=== PATIENT | female | born 1955 | race Two or more races ===

== ENCOUNTER 2016-07-11 23:51 | Inpatient (IN) | payer SELFPAY ==
[~2016-07-11] VITALS: Ht 152.4 cm; Wt 50.9 kg
[2016-07-12] MEDS ORDERED: ASPIRIN 81 MG TAB.CHEW PO ONE (00:30)
[2016-07-12] MEDS ORDERED: NITROGLYCERIN SUBLINGUAL 0.4 MG BOTTLE OF 25. SL PRN ×2 (00:30→01:45)
--- NOTE | 2016-07-12 00:40 | PHYS DOC ---
Past Medical History Past Medical History: High Cholesterol Past Surgical History: No Surgical History Alcohol Use: None Drug Use: None Adult General Chief Complaint Chief Complaint: SHORTNESS OF BREATH HPI HPI Patient is a 60 year old female who presents with chest discomfort. Patient reports this evening ~1800 she started feeling SOB as well as feeling substernal chest pressure. No clear inciting or mitigating factors. No prior similar episodes. She also reports having chills and loose stools for a few days. She has not taken anything for her symptoms prior to coming to ED. History obtained via serging machine operator phone. Review of Systems Review of Systems Constitutional: Chills Eyes: Denies change in visual acuity or eye pain HENT: Denies nasal congestion or sore throat Respiratory: Shortness of breath, mild cough Cardiovascular: Substernal chest pressure GI: Loose stools. Denies abdominal pain, nausea, vomiting, bloody stools : Denies dysuria or hematuria Musculoskeletal: Denies back pain or joint pain Integument: Denies rash or skin lesions Neurologic: Denies headache, focal weakness or sensory changes Current Medications Current Medications Current Medications Medications (Trade) Dose Ordered Sig/Tim Start Time Stop Time Status Last Admin Dose Admin Aspirin (Children'S Aspirin) 324 mg 1X ONCE 07/12/16 00:30 07/12/16 00:31 DC 07/12/16 00:37 324 MG Nitroglycerin (Nitrostat) 0.4 mg PRN Q5MIN PRN 07/12/16 00:30 07/12/16 02:00 DC 07/12/16 00:37 0.4 MG Allergies Allergies Allergies Coded Allergies Type Severity Reaction Last Updated Verified No Known Drug Allergies 07/11/16 No Physical Exam Physical Exam Constitutional: Well developed, well nourished, no acute distress, non-toxic appearance HENT: Normocephalic, atraumatic, bilateral external ears normal Eyes: EOMI, conjunctiva normal, no discharge Neck: Normal range of motion, no stridor Cardiovascular: Heart rate normal, regular rhythm, no murmur Lungs & Thorax: Bilateral breath sounds clear to auscultation Abdomen: Bowel sounds normal, soft, non-distended, no TTP Skin: Warm, dry, no erythema, no rash Extremities: No obvious deformity, no edema Neurologic: Alert and oriented X 3, no gross deficits noted Current Patient Data Vital Signs Vital Signs Date Time Temp Pulse Resp B/P Pulse Ox O2 Delivery O2 Flow Rate FiO2 07/12/16 01:20 58 18 143/67 99 Room Air 07/11/16 23:55 97.7 97.7 Lab Values Laboratory Tests Test 07/12/16 00:30 White Blood Count 3.7x10^3/uL (4.0-11.0) L Red Blood Count 4.72x10^6/uL (3.50-5.40) Hemoglobin 13.6g/dL (12.0-15.5) Hematocrit 41.5% (36.0-47.0) Mean Corpuscular Volume 88fL (79-100) Mean Corpuscular Hemoglobin 29pg (25-35) Mean Corpuscular Hemoglobin Concent 33g/dL (31-37) Red Cell Distribution Width 13.3% (11.5-14.5) Platelet Count 153x10^3/uL (140-400) Neutrophils (%) (Auto) 33% (31-73) Lymphocytes (%) (Auto) 58% (24-48) H Monocytes (%) (Auto) 7% (0-9) Eosinophils (%) (Auto) 2% (0-3) Basophils (%) (Auto) 1% (0-3) Neutrophils # (Auto) 1.2x10^3uL (1.8-7.7) L Lymphocytes # (Auto) 2.1x10^3/uL (1.0-4.8) Monocytes # (Auto) 0.3x10^3/uL (0.0-1.1) Eosinophils # (Auto) 0.1x10^3/uL (0.0-0.7) Basophils # (Auto) 0.0x10^3/uL (0.0-0.2) Sodium Level 144mmol/L (136-145) Potassium Level 3.4mmol/L (3.5-5.1) L Chloride Level 106mmol/L (98-107) Carbon Dioxide Level 26mmol/L (21-32) Anion Gap 12 (6-14) Blood Urea Nitrogen 15mg/dL (7-20) Creatinine 0.7mg/dL (0.6-1.0) Estimated GFR (Cockcroft-Gault) 85.1 Glucose Level 102mg/dL (70-99) H Calcium Level 9.2mg/dL (8.5-10.1) Troponin I Quantitative < 0.017ng/mL (0.000-0.055) Laboratory Tests 07/12/16 00:30 Laboratory Tests 07/12/16 00:30 EKG EKG EKG (my read): sinus rhythm, rate 65, normal axis, intervals wnl, nonspecific ST changes, limited by artifact Radiology/Procedures Radiology/Procedures CXR (my read): No acute abnormality Course & Med Decision Making Course & Med Decision Making Pertinent Labs and Imaging studies reviewed. (See chart for details) Patient is 60 year old female who presents with chest pressure and SOB. Concern for possibility of ACS. Will check EKG, CXR, labs to evaluate. ASA and SL nitroglycerin ordered. EKG and CXR results as above. Labs largely unremarkable; troponin wnl. I still believe patient warrants admission for further evaluation of her chest discomfort due to concern for possible CAD. Discussed results with patient, who reports symptoms significantly improved after nitro. Discussed with Dr. Houston, will admit under his care for further evaluation and treatment. Dragon Disclaimer Dragon Disclaimer This electronic medical record was generated, in whole or in part, using a voice recognition dictation system. Departure Departure Impression: Primary Impression: Chest pressure Additional Impression: SOB (shortness of breath) Disposition: ADMITTED INPATIENT Admitting Physician: Elias Houston Condition: STABLE Referrals: NO PCP (PCP) Problem Qualifiers SEBLE BRANCH MD Jul 12, 2016 00:40
[2016-07-12 00:44] LABS: BASO % 1 % (0-3); EOS % 2 % (0-3); HEMATOCRIT 41.5 % (36.0-47.0); HEMOGLOBIN 13.6 g/dL (12.0-15.5); LYMPH # 2.1 x10^3/uL (1.0-4.8); LYMPH % 58 % (24-48); MEAN CORPUSCULAR HEMOGLOBIN 29 pg (25-35); MEAN CORPUSCULAR HGB CONC 33 g/dL (31-37); MEAN CORPUSCULAR VOLUME 88 fL (79-100); MONO % 7 % (0-9); NEUT % 33 % (31-73); PLATELET COUNT 153 x10^3/uL (140-400); RED BLOOD COUNT 4.72 x10^6/uL (3.50-5.40); RED CELL DISTRIBUTION WIDTH 13.3 % (11.5-14.5); WHITE BLOOD COUNT 3.7 x10^3/uL (4.0-11.0)
[2016-07-12 00:54] LABS: CALCIUM 9.2 mg/dL (8.5-10.1); CREATININE 0.7 mg/dL (0.6-1.0); GFR 85.1; POTASSIUM 3.4 mmol/L (3.5-5.1)
[2016-07-12] MEDS ORDERED: MORPHINE SULFATE 2 MG/ML DISP.SYRIN. IV PRN (01:45)
[2016-07-12] MEDS ORDERED: ACETAMINOPHEN 325 MG TABLET. PO PRN (01:45)
[2016-07-12] MEDS ORDERED: ONDANSETRON PF 4 MG/2 ML VIAL. IV PRN ×2 (01:45→09:35)
[2016-07-12 02:36] VITALS: BP 173/84
[2016-07-12] MEDS ORDERED: L.AC1CAP6 PO (02:55)
[2016-07-12] MEDS ORDERED: LORA10TA3 PO (02:55)
--- NOTE | 2016-07-12 06:53 | EKG ---
[facility] [address] [place] [address] Test Date: 2016-07-12 Test Time: 00:12:26 Pat Name: NATE SIMS Department: Room: 258 1 Gender: F [employer] Agent: : 1955 Requested By: SEBLE BRANCH Order Number: [id number] Reading MD: Toby Costa Measurements Intervals [place] Rate: 65 P: 90 DE: 134 QRS: 35 QRSD: 76 T: 38 QT: 422 QTc: 444 Interpretive Statements SINUS RHYTHM LOW LIMB LEAD VOLTAGE NO SPECIFIC ECG ABNORMALITIES Electronically Signed On 07-23-2016 16:13:37 CDT by Toby Costa
--- NOTE | 2016-07-12 07:31 | RAD ---
Indication chest pressure. Shortness of breath. PA and lateral views of the chest were obtained. No prior imaging is available. The heart, pulmonary vessels and mediastinum appear normal. The lungs are clear. Bony structures appear grossly intact. IMPRESSION: No acute or significant finding apparent in the chest
[2016-07-12 07:42] VITALS: BP 143/74
--- NOTE | 2016-07-12 08:53 | PDOC2 ---
EFREM RODRIGUEZ TAPE STRINGER 07/12/16 0853: CARDIAC CONSULT DATE OF CONSULT Date of Consult DATE: 07/12/16 TIME: 08:45 REASON FOR CONSULT Reason for Consult: Chest pressure, SOB REFERRING PHYSICIAN Referring Physician: Jose De Jesus SOURCE Source: Chart review, Patient HISTORY OF PRESENT ILLNESS HISTORY OF PRESENT ILLNESS This is a pleasant 60 yo female admitted for complains of chest pressure. Pt speaks minimal Maori, family at the bedside and was able to interpret some details of her symptomatology. Reports that about a week ago she was eating in which afterwards she felt midchest pressure. She did not take any medications for this but this lasted for a while. Medication boucher she just takes claritin and probiotics. Reports occasional sensation of food getting stucked midway to her swallowing but no distress. Also occasional dizziness which almost occur when she has this globus episode. Yesterday 1 hour after dinner she felt the same midchest pressure which was nonradiating but felt SOA at that time and lasted about 2 hours which recurred again overnight. There was no diaphoresis, palpitations. Denies any CAD, VTE, recent falls, injury, nor PUD, GERD. Denies any CURTIS and no changes with her activity tolerance. PAST MEDICAL HISTORY Cardiovascular: Hyperlipidemia (unmedicated) Pulmonary: No pertinent hx CENTRAL NERVOUS SYSTEM: Other (No pertinent history) GI: Other (diarrhea) Heme/Onc: No pertinent hx Hepatobiliary: No pertinent hx Psych: No pertinent hx Musculoskeletal: Osteoarthritis Rheumatologic: No pertinent hx Infectious disease: No pertinent hx ENT: Allergic Rhinitis Renal/: No pertinent hx Endocrine: No pertinent hx Dermatology: No pertinent hx PAST SURGICAL HISTORY Past Surgical History: (x2) FAMILY HISTORY Family History: Diabetes (sister) SOCIAL HISTORY Smoke: No (quit 1 yr ago 10 ciggs 40 yrs) ALCOHOL: none Drugs: None Lives: with Family CURRENT MEDICATIONS CURRENT MEDICATIONS Current Medications Medications (Trade) Dose Ordered Sig/Tim Route PRN Reason Start Time Stop Time Status Last Admin Dose Admin Aspirin (Children'S Aspirin) 324 mg 1X ONCE PO 07/12/16 00:30 07/12/16 00:31 DC 07/12/16 00:37 Nitroglycerin (Nitrostat) 0.4 mg PRN Q5MIN PRN SL CP RATING > 1/10 07/12/16 00:30 07/12/16 02:00 DC 07/12/16 00:37 ALLERGIES ALLERGIES: Coded Allergies: No Known Drug Allergies (Unverified , 07/11/16) ROS Review of System 14 point ROS evaluated with pertinent positives noted per HPI PHYSICAL EXAM General: Alert, Oriented X3, Cooperative, No acute distress HEENT: Atraumatic, Mucous membr. moist/pink Lungs: Clear to auscultation, Normal air movement Heart: Regular rate, Normal S1, Normal S2, Other (2/6 systolic murmur to LLS border) Abdomen: Soft, No tenderness Extremities: No cyanosis, No edema Skin: No breakdown, No significant lesion Neuro: Normal speech, Sensation intact Psych/Mental Status: Mental status NL, Mood NL MUSCULOSKELETAL: Osteoarthritic changes both hands VITALS VITALS Vital Signs Date Time Temp Pulse Resp B/P Pulse Ox O2 Delivery O2 Flow Rate FiO2 07/12/16 07:42 97.7 72 18 143/74 98 Room Air 97.7 LABS Lab: Laboratory Tests Test 07/12/16 00:30 07/12/16 07:40 White Blood Count 3.7x10^3/uL (4.0-11.0) Red Blood Count 4.72x10^6/uL (3.50-5.40) Hemoglobin 13.6g/dL (12.0-15.5) Hematocrit 41.5% (36.0-47.0) Mean Corpuscular Volume 88fL (79-100) Mean Corpuscular Hemoglobin 29pg (25-35) Mean Corpuscular Hemoglobin Concent 33g/dL (31-37) Red Cell Distribution Width 13.3% (11.5-14.5) Platelet Count 153x10^3/uL (140-400) Neutrophils (%) (Auto) 33% (31-73) Lymphocytes (%) (Auto) 58% (24-48) Monocytes (%) (Auto) 7% (0-9) Eosinophils (%) (Auto) 2% (0-3) Basophils (%) (Auto) 1% (0-3) Neutrophils # (Auto) 1.2x10^3uL (1.8-7.7) Lymphocytes # (Auto) 2.1x10^3/uL (1.0-4.8) Monocytes # (Auto) 0.3x10^3/uL (0.0-1.1) Eosinophils # (Auto) 0.1x10^3/uL (0.0-0.7) Basophils # (Auto) 0.0x10^3/uL (0.0-0.2) Sodium Level 144mmol/L (136-145) Potassium Level 3.4mmol/L (3.5-5.1) Chloride Level 106mmol/L (98-107) Carbon Dioxide Level 26mmol/L (21-32) Anion Gap 12 (6-14) Blood Urea Nitrogen 15mg/dL (7-20) Creatinine 0.7mg/dL (0.6-1.0) Estimated GFR (Cockcroft-Gault) 85.1 Glucose Level 102mg/dL (70-99) Calcium Level 9.2mg/dL (8.5-10.1) Troponin I Quantitative < 0.017ng/mL (0.000-0.055) < 0.017ng/mL (0.000-0.055) ASSESSMENT/PLAN ASSESSMENT/PLAN 1. Chest pain: possible GI with globus sensation. 1. HTN: Possible hypertensive heart disease. 2. DLP: unmedicated LDL 109 but HDL 72. 3. Previous chronic tobaccoism: 20 pk yr quit 1 yr ago. 4. Subclinical hypothyroidism: TSH 6.8 Recommendations 1. With significant cardiac risk factors, MPI today to completely rule out ischemia 2. TTE 3. Repeat EKG due to significant artifacts 4. Replace K 5. CMP, Mg, lipids 6. Start on ECASA 81 mg for primary prevention. 7. Encourage low fat diet and incorporate exercise in regimen. 8. If BP remains high then recommend low dose lisinopril/HCTZ combo. 9. Start PPI, recommend GI referral Problems: BILLY DHILLON MD 07/13/16 0709: CARDIAC CONSULT ALLERGIES ALLERGIES: Coded Allergies: No Known Drug Allergies (Unverified , 07/11/16) ASSESSMENT/PLAN ASSESSMENT/PLAN Patient seen and examined 07/12/16. Agree with ADMITTANCE ATTENDANT's assessment and plan. Chest pain with atypical features and most probably GI etiology. Myocardial infarction ruled out. 2-D echo showed normal LV function without any wall motion abnormalities. Lexiscan nuclear stress test did not show any significant ischemia. No further cardiac workup is indicated at this time. Thank you for your consultation. Problems: EFREM RODRIGUEZ APRN Jul 12, 2016 08:53 BILLY DHILLON MD Jul 13, 2016 07:09
--- NOTE | 2016-07-12 09:28 | EKG ---
[facility] [address] [place] [address] Test Date: 2016-07-12 Test Time: 09:26:50 Pat Name: NATE SIMS Department: Room: 258 1 Gender: F Ferry Pilot: CHRISTIAN : 1955 Requested By: EFREM RODRIGUEZ Order Number: [id number] Reading MD: Toby Costa Measurements Intervals [place] Rate: 62 P: 64 VA: 156 QRS: 22 QRSD: 74 T: 53 QT: 432 QTc: 441 Interpretive Statements SINUS RHYTHM NORMAL ECG Electronically Signed On 07-23-2016 16:14:23 CDT by Toby Costa
[2016-07-12 09:32] LABS: ALBUMIN 3.8 g/dL (3.4-5.0); CREATININE 0.7 mg/dL (0.6-1.0); GFR 85.1; MAGNESIUM 2.4 mg/dL (1.8-2.4); POTASSIUM 3.8 mmol/L (3.5-5.1); TOTAL BILIRUBIN 0.5 mg/dL (0.2-1.0); TOTAL PROTEIN 7.5 g/dL (6.4-8.2)
[2016-07-12 09:36] LABS: CHOLESTEROL/HDL RATIO 2.9
--- NOTE | 2016-07-12 09:38 | PDOC1 ---
History and Physical Date of Admission Date of Admission DATE: 07/12/16 TIME: 09:33 Identification/Chief Complaint Chief Complaint CP at rest x 2 hrs Source Source: Caregiver History of Present Illness History of Present Illness 60 y./o Gabonese speaking lady, 10 y.o grand son acts as cut in worker, Pt only takes loratidine and Probiotic as home med, Came in last night bec of CP at home at rest associated with nausea, no other sxs relayed to me, Lasted 2 hrs, currently CP free. Trops x 2 neg, EKG I have personally reviewed, no concerning findings Pt already ate breakfast NOn smoker, non drinker NO relevant past surgical hx ROS: all 14 pt reviewed, neg Fam Hx; HTN and Dm in family PAst medical: allergies Past Medical History Cardiovascular: No pertinent hx, Hyperlipidemia Pulmonary: No pertinent hx GI: No pertinent hx Heme/Onc: No pertinent hx Hepatobiliary: No pertinent hx Psych: No pertinent hx Rheumatologic: No pertinent hx Infectious disease: No pertinent hx ENT: No pertinent hx Renal/: No pertinent hx Endocrine: No pertinent hx Dermatology: No pertinent hx Past Surgical History Past Surgical History: , No pertinent history Family History Family History: High Cholestrol, Hypertension, Other (DM) Social History Smoke: No ALCOHOL: none Drugs: None Current Problem List Problem List Problems Medical Problems: (1) Chest pressure Status: Acute (2) SOB (shortness of breath) Status: Acute Problems: Current Medications Current Medications Current Medications Aspirin (Children'S Aspirin) 324 mg 1X ONCE PO Last administered on 07/12/16 00:37; Start 07/12/16 at 00:30; Stop 07/12/16 at 00:31; Status DC Nitroglycerin (Nitrostat) 0.4 mg PRN Q5MIN PRN SL CP RATING > 1/10 Last administered on 07/12/16 00:37; Start 07/12/16 at 00:30; Stop 07/12/16 at 02:00 ; Status DC Ondansetron HCl (Zofran) 4 mg PRN Q8HRS PRN IV NAUSEA/VOMITING; Start 07/12/16 at 01:45; Stop 07/13/16 at 01:44 Morphine Sulfate 2 mg PRN Q2HR PRN IV PAIN; Start 07/12/16 at 01:45; Stop 07/13 at 01:44 Acetaminophen (Tylenol) 650 mg PRN Q4HRS PRN PO FEVER; Start 07/12/16 at 01:45 ; Stop 07/13/16 at 01:44 Nitroglycerin (Nitrostat) 0.4 mg PRN Q5MIN PRN SL CHEST PAIN; Start 07/12/16 at 01:45; Stop 07/13/16 at 01:44 Active Scripts Active Reported Loratadine 10 Mg Tablet 10 Mg PO DAILY Probiotic (L.acidoph & Paracasei,B.lactis) 1 Each Capsule 1 Each PO Allergies Allergies: Coded Allergies: No Known Drug Allergies (Unverified , 07/11/16) ROS General: No: Appetite, Chills, Fatigue, Malaise, Night Sweats, Other PSYCHOLOGICAL ROS: No: Anxiety, Behavioral Disorder, Concentration difficultie , Decreased libido, Depression, Disorientation, Hallucinations, Hostility, Irritablity, Memory difficulties, Mood Swings, Obsessive thoughts, Other, Physical abuse, Sexual abuse, Sleep disturbances, Suicidal ideation Eyes: No Blurry vision, No Decreased vision, No Double vision, No Dry eyes, No Excessive tearing, No Eye Pain, No Itchy Eyes, No Loss of vision, No Other, No Photophobia, No Scotomata, No Uses contacts, No Uses glasses HEENT: No: Epistaxis, Heacaches, Hearing change, Nasal congestion, Nasal discharge, Oral lesions, Other, Sinus pain, Sneezing, Snoring, Sore Throat, Tinnitus, Vertigo, Visual Changes, Vocal changes ALLERGY AND IMMUNOLOGY: No: Hives, Insect Bite Sensitivity, Itchy/Watery Eyes, Nasal Congestion, Other, Post Nasal Drip, Seasonal Allergies Hematological and Lymphatic: No: Bleeding Problems, Blood Clots, Blood Transfusions, Brusing, Night Sweats, Other, Pallor, Swollen Lymph Nodes ENDOCRINE: No: Breast Changes, Galactorrhea, Hair Pattern Changes, Hot Flashes , Malaise/lethargy, Mood Swings, Other, Palpitations, Polydipsia/polyuria, Skin Changes, Temperature Intolerance, Unexpected Weight Changes Breast: No New/Changing Breast Lumps, No Nipple changes, No Nipple discharge, No Other Respiratory: No: Cough, Hemoptysis, Orthopnea, Other, Pleuritic Pain, SOB with excertion, Shortness of breath, Sputum Changes, Stridor, Tachypnea, Wheezing Cardiovascular: No Chest Pain, No Edema, No Lt Headedness, No Orthopnea, No Other, No Palpitations, No Paroxysmal Noc. Dyspnea Gastrointestinal: No Abdominal Pain, No Constipation, No Diarrhea, No Hematochezia, No Melena, No Nausea, No Other, No Vomiting Genitourinary: No , No , No , No , No , No , No , No Discharge, No Dysuria, No Flank Pain, No Frequency, No Hematuria, No Incontinence, No Other, No Pain, No Retention, No Urgency Musculoskeletal: No Gait Disturbance, No Joint Pain, No Joint Stiffness, No Joint Swelling, No Muscle Pain, No Muscular Weakness, No Other, No Pain In:, No Swelling In: Neurological: No Behavorial Changes, No Bowel/Bladder ControlChng, No Confusion , No Dizziness, No Gait Disturbance, No Headaches, No Impaired Coord/balance, No Memory Loss, No Numbness/Tingling, No Other, No Seizures, No Speech Problems , No Tremors, No Visual Changes, No Weakness Skin: No Acne, No Dry Skin, No Eczema, No Hair Changes, No Lumps, No Mole Changes, No Mottling, No Nail Changes, No Other, No Pruritus, No Rash, No Skin Lesion Changes Physical Exam General: Alert, Oriented X3, Cooperative, No acute distress HEENT: Atraumatic Lungs: Clear to auscultation, Normal air movement Heart: S1S2, RRR, no thrills, no rubs, no gallops Cardiovascular: S1, S2 Breasts: Normal, Rt breast nml w/o mass, Lt breast nml w/o mass, Nipples normal Male Genitals Exam: normal genitalia, normal prostate Rectal Exam: not examined PELVIC: Nml ext genitalia Extremities: No clubbing, No cyanosis, No edema, Normal pulses, No tenderness/ swelling Skin: No rashes, No breakdown, No significant lesion Neuro: Normal gait, Normal speech, Strength at 5/5 X4 ext, Normal tone, Sensation intact, Cranial nerves 3-12 NL, Reflexes 2+ Psych/Mental Status: Mental status NL, Mood NL Vitals Vitals Vital Signs Date Time Temp Pulse Resp B/P Pulse Ox O2 Delivery O2 Flow Rate FiO2 07/12/16 08:00 Room Air 07/12/16 07:42 97.7 72 18 143/74 98 97.7 Labs Labs Laboratory Tests Test 07/12/16 00:30 07/12/16 07:40 White Blood Count 3.7x10^3/uL (4.0-11.0) Red Blood Count 4.72x10^6/uL (3.50-5.40) Hemoglobin 13.6g/dL (12.0-15.5) Hematocrit 41.5% (36.0-47.0) Mean Corpuscular Volume 88fL (79-100) Mean Corpuscular Hemoglobin 29pg (25-35) Mean Corpuscular Hemoglobin Concent 33g/dL (31-37) Red Cell Distribution Width 13.3% (11.5-14.5) Platelet Count 153x10^3/uL (140-400) Neutrophils (%) (Auto) 33% (31-73) Lymphocytes (%) (Auto) 58% (24-48) Monocytes (%) (Auto) 7% (0-9) Eosinophils (%) (Auto) 2% (0-3) Basophils (%) (Auto) 1% (0-3) Neutrophils # (Auto) 1.2x10^3uL (1.8-7.7) Lymphocytes # (Auto) 2.1x10^3/uL (1.0-4.8) Monocytes # (Auto) 0.3x10^3/uL (0.0-1.1) Eosinophils # (Auto) 0.1x10^3/uL (0.0-0.7) Basophils # (Auto) 0.0x10^3/uL (0.0-0.2) Sodium Level 144mmol/L (136-145) Potassium Level 3.4mmol/L (3.5-5.1) Chloride Level 106mmol/L (98-107) Carbon Dioxide Level 26mmol/L (21-32) Anion Gap 12 (6-14) Blood Urea Nitrogen 15mg/dL (7-20) Creatinine 0.7mg/dL (0.6-1.0) Estimated GFR (Cockcroft-Gault) 85.1 Glucose Level 102mg/dL (70-99) Calcium Level 9.2mg/dL (8.5-10.1) Troponin I Quantitative < 0.017ng/mL (0.000-0.055) < 0.017ng/mL (0.000-0.055) Laboratory Tests Test 07/12/16 00:30 07/12/16 07:40 White Blood Count 3.7x10^3/uL (4.0-11.0) Red Blood Count 4.72x10^6/uL (3.50-5.40) Hemoglobin 13.6g/dL (12.0-15.5) Hematocrit 41.5% (36.0-47.0) Mean Corpuscular Volume 88fL (79-100) Mean Corpuscular Hemoglobin 29pg (25-35) Mean Corpuscular Hemoglobin Concent 33g/dL (31-37) Red Cell Distribution Width 13.3% (11.5-14.5) Platelet Count 153x10^3/uL (140-400) Neutrophils (%) (Auto) 33% (31-73) Lymphocytes (%) (Auto) 58% (24-48) Monocytes (%) (Auto) 7% (0-9) Eosinophils (%) (Auto) 2% (0-3) Basophils (%) (Auto) 1% (0-3) Neutrophils # (Auto) 1.2x10^3uL (1.8-7.7) Lymphocytes # (Auto) 2.1x10^3/uL (1.0-4.8) Monocytes # (Auto) 0.3x10^3/uL (0.0-1.1) Eosinophils # (Auto) 0.1x10^3/uL (0.0-0.7) Basophils # (Auto) 0.0x10^3/uL (0.0-0.2) Sodium Level 144mmol/L (136-145) Potassium Level 3.4mmol/L (3.5-5.1) Chloride Level 106mmol/L (98-107) Carbon Dioxide Level 26mmol/L (21-32) Anion Gap 12 (6-14) Blood Urea Nitrogen 15mg/dL (7-20) Creatinine 0.7mg/dL (0.6-1.0) Estimated GFR (Cockcroft-Gault) 85.1 Glucose Level 102mg/dL (70-99) Calcium Level 9.2mg/dL (8.5-10.1) Troponin I Quantitative < 0.017ng/mL (0.000-0.055) < 0.017ng/mL (0.000-0.055) VTE Prophylaxis Ordered VTE Prophylaxis Devices: Yes VTE Pharmacological Prophylaxi: Yes Assessment/Plan Assessment/Plan 1. CP in an adult at rest 2. Seasonal allergies 3. Mild hypokalemia PLAn: Replace K Unfortunately pt had breakfast this AM Follow cards recs re work up Dw pt s family MORGAN JAIN MD Jul 12, 2016 09:38
[2016-07-12] MEDS ORDERED: POTASSIUM CHLORIDE 20 MEQ TABLET.ER. PO ONE ×2 (09:45→15:30)
[2016-07-12 11:00] VITALS: BP 151/85
[2016-07-12] MEDS ORDERED: REGADENOSON 0.4 MG/5 ML DISP.SYRIN. IV ONE (12:15)
--- NOTE | 2016-07-12 12:54 | CARD ---
APPROVED REPORT EXAM: Two-dimensional and M-mode echocardiogram with Doppler and color Doppler. Other Information Quality : Average Rhythm : NSR INDICATION Chest Pain 2D DIMENSIONS RVDd2.0 (2.9-3.5cm)Left Atrium(2D)3.0 (1.6-4.0cm) IVSd0.8 (0.7-1.1cm)Aortic Root(2D)2.5 (2.0-3.7cm) LVDd4.2 (3.9-5.9cm)LVOT Diameter2.3 (1.8-2.4cm) PWd0.8 (0.7-1.1cm)LVDs2.8 (2.5-4.0cm) FS (%) 33.0 %SV48.3 ml LVEF(%)61.9 (>50%) Aortic Valve AoV Peak Armando.120.8cm/sAoV VTI26.1cm AO Peak GR.5.8mmHgLVOT Peak Armando.80.6cm/s LVOT VTI 18.66cmAO Mean GR.3mmHg DREAD (VMAX)2.18ee6NCG (VTI)3.04cm2 Mitral Valve MV E Vuvucouf35.9cm/sMV DECEL [id number] MV A Sqxwggvo98.6cm/sMV E Mean Gr.1mmHg MV GFQ07mrZ/A Ratio1.1 MV A Apgyfslw103peHHH (PHT)4.02cm2 TDI E/Lateral E'8.5E/Medial E'8.5 Pulmonary Valve PV Peak Lmexfqzt52.0cm/sPV Peak Grad.2mmHg RVOT VTI18.7cm Tricuspid Valve TR P. Sxhwmfgv442ly/sRAP CVOBERQD6ryXb TR Peak Gr.40jhPnLRPU39xmIn Pulmonary Vein S1 Jrunewra75.3cm/sD2 Smzuyllb94.0cm/s LEFT VENTRICLE The left ventricle is normal size. There is normal left ventricular wall thickness. Left ventricle sy stolic function is normal. The Ejection Fraction is 60-65%. There is normal LV segmental wall motion. The left ventricular diastolic function and filling is normal for age. RIGHT VENTRICLE The right ventricle is normal size. The right ventricular systolic function is normal. ATRIA The left atrium size is normal. The right atrium size is normal. The interatrial septum is intact wit h no evidence for an atrial septal defect or patent foramen ovale as noted on 2-D or Doppler imaging. AORTIC VALVE The aortic valve is normal in structure and function. The aortic valve is trileaflet. Doppler and Col or Flow revealed no significant aortic regurgitation. There is no significant aortic valvular stenosi s. MITRAL VALVE The mitral valve is normal in structure and function. There is no mitral valve stenosis. Doppler and Color Flow revealed no mitral valve regurgitation noted. TRICUSPID VALVE The tricuspid valve is normal in structure and function. Doppler and Color Flow revealed mild tricusp id regurgitation. The PA pressure was estimated at 38 mmHg. There is no tricuspid valve stenosis. PULMONIC VALVE The pulmonic valve is not well visualized. Doppler and Color Flow revealed no pulmonic valvular regur gitation. There is no pulmonic valvular stenosis. GREAT VESSELS The aortic root is normal in size. Normal pulmonary venous flow (Doppler). The IVC is normal in size and collapses >50% with inspiration. PERICARDIAL EFFUSION There is no evidence of significant pericardial effusion. Critical Notification Critical Value: No <Conclusion> Left ventricle systolic function is normal. The Ejection Fraction is 60-65%. There is normal LV segmental wall motion. Mild tricuspid regurgitation. The PA pressure was estimated at 38 mmHg. There is no evidence of significant pericardial effusion.
[2016-07-12 15:14] VITALS: BP 137/67
--- NOTE | 2016-07-12 15:16 | RAD ---
APPROVED REPORT Test Type: Pharmacological Stress Nurse/Tech: Janeth Yee R.N. Test Indications: SOA, Chest pressure Cardiac History: None reported Medications: SEE EMR Medical History: SEE EMR Resting ECG: SR Resting Heart Rate: 67 bpm Resting Blood Pressure: 148/82mmHg Pretest Chest Pain: None Nurse/Tech Notes S1S2, lungs CTA, denied chest pain and SOA. Consent: The procedure was explained to the patient in lay terms. Informed consent was witnessed. Krishan eout was entered into [employer]. History and Stress Test performed by Janeth Yee R.N. Pharm. Details Pharmacologic stress testing was performed using 0.4mg per 5ml of regadenoson given intravenously ove r 7-10 seconds. Stress Symptoms Nausea. C/O heaviness in hands and feet. POST EXERCISE Reason for Termination: Infusion complete Max HR: 120 bpm Max Blood Pressure: 159/82mmHg Blood Pressure response to exercise: Normal blood pressure response during stress. Heart Rate response to exercise: Normal Chest Pain: No. Arrhythmia: No. ST Change: Yes. Please evaluate for slight changes in II, III, AVF INTERPRETATION Stress EKG Conclusion: Baseline EKG showed sinus rhythm. No ischemic changes at peak stress. No arr hythmias. Imaging Protocol IMAGE PROTOCOL: Rest Tc-99m/stress Tc-99m 1 day Rest: Stress: Viability: Radiopharm.Tc99m MpdeycbaeWz47m Sestamibi Dose11.5mCi 33mCi Duration 15min. 10min. Img Date 07/12/2016 07/12/2016 Inj-Img [id number]. 90min. Rest Admin Site:IV - Right AntecubitalAdministrator:LIANNA Mercado Stress Admin Site: IV - Right AntecubitalAdministrator: CLEMENTINE Hi, ARRT (R)(N) STRESS DATA End Diast. Vol.44.0mlAv. Heart Rate70.0bpm LVEDV index BSA30.0mlCardiac Output0.0L/min End Syst. Vol.5.0mlCO Index BSA0.0L/min LVESV index BSA4.0mlMyocardial Mass86.0g Eject. Wwzurawm26.0% Stress Rates Pk. Fill Rate3.59EDV/secLVtime Pk. Fill 219.71msec Pk. Empty Rate5.07ESV/secLVtime Pk. Jnrhj481.21msec 04/24 Pk. Fill0.78EDV/sec Stress Scores Regional WT0.00Summed WT0.00 Regional WM0.00Summed WM0.00 Study quality was good. Left Ventricular size was Normal at Rest and Stress. Lung uptake was Normal. Left Ventricular ejection fraction is 89%. The rest and stress images show normal perfusion, normal contraction and thickening. LV Perf. Quant 17 Seg. SSS0.00 17 Seg. SRS1.00 17 Seg. SDS0.00 Stress Defect Extent (% LAD)0.00Rest Defect Extent (% LAD)0.00Rev. Defect Extent (% LAD)0.00 Stress Defect Extent (% LCX) 0.00Rest Defect Extent (% LCX)12.50Rev. Defect Extent (% LCX)0.00 Stress Defect Extent (% RCA)0.00Rest Defect Extent (% RCA)0.00Rev. Defect Extent (% RCA)0.00 Stress Defect Extent (% MELISSA)0.00Rest Defect Extent (% MELISSA)2.20Rev. Defect Extent (% MELISSA)0.00 Conclusion 1. Regadenoson cardioisotope stress test did not show any evidence of ischemia or infarct. 2. Normal left ventricular systolic function with ejection fraction calculated at 89%. 3. Low risk for cardiac events.
[2016-07-12] MEDS: PANTOPRAZOLE 40 MG TABLET. PO SCH (15:53)
--- NOTE | 2016-07-12 16:08 | PDOC3 ---
Discharge Summary Visit Information Date of Admission: Jul 11, 2016 Date of Discharge: Jul 12, 2016 Admitting Diagnosis Comment: CP neg mPI elevated BP (no dx HTN) Final Diagnosis Problems Medical Problems: (1) Chest pressure Status: Acute (2) SOB (shortness of breath) Status: Acute Brief Hospital Course Allergies Allergies Coded Allergies Type Severity Reaction Last Updated Verified No Known Drug Allergies 07/11/16 No Vital Signs Vital Signs Date Time Temp Pulse Resp B/P Pulse Ox O2 Delivery O2 Flow Rate FiO2 07/12/16 15:14 97.6 70 14 137/67 98 Room Air 97.6 Lab Results Laboratory Tests Test 07/12/16 00:30 07/12/16 07:40 07/12/16 13:45 White Blood Count 3.7x10^3/uL (4.0-11.0) Red Blood Count 4.72x10^6/uL (3.50-5.40) Hemoglobin 13.6g/dL (12.0-15.5) Hematocrit 41.5% (36.0-47.0) Mean Corpuscular Volume 88fL (79-100) Mean Corpuscular Hemoglobin 29pg (25-35) Mean Corpuscular Hemoglobin Concent 33g/dL (31-37) Red Cell Distribution Width 13.3% (11.5-14.5) Platelet Count 153x10^3/uL (140-400) Neutrophils (%) (Auto) 33% (31-73) Lymphocytes (%) (Auto) 58% (24-48) Monocytes (%) (Auto) 7% (0-9) Eosinophils (%) (Auto) 2% (0-3) Basophils (%) (Auto) 1% (0-3) Neutrophils # (Auto) 1.2x10^3uL (1.8-7.7) Lymphocytes # (Auto) 2.1x10^3/uL (1.0-4.8) Monocytes # (Auto) 0.3x10^3/uL (0.0-1.1) Eosinophils # (Auto) 0.1x10^3/uL (0.0-0.7) Basophils # (Auto) 0.0x10^3/uL (0.0-0.2) Sodium Level 144mmol/L (136-145) 146mmol/L (136-145) Potassium Level 3.4mmol/L (3.5-5.1) 3.8mmol/L (3.5-5.1) Chloride Level 106mmol/L (98-107) 109mmol/L (98-107) Carbon Dioxide Level 26mmol/L (21-32) 25mmol/L (21-32) Anion Gap 12 (6-14) 12 (6-14) Blood Urea Nitrogen 15mg/dL (7-20) 15mg/dL (7-20) Creatinine 0.7mg/dL (0.6-1.0) 0.7mg/dL (0.6-1.0) Estimated GFR (Cockcroft-Gault) 85.1 85.1 Glucose Level 102mg/dL (70-99) 96mg/dL (70-99) Calcium Level 9.2mg/dL (8.5-10.1) 9.0mg/dL (8.5-10.1) Troponin I Quantitative < 0.017ng/mL (0.000-0.055) < 0.017ng/mL (0.000-0.055) < 0.017ng/mL (0.000-0.055) BUN/Creatinine Ratio 21 (6-20) Magnesium Level 2.4mg/dL (1.8-2.4) Total Bilirubin 0.5mg/dL (0.2-1.0) Aspartate Amino Transf (AST/SGOT) 36U/L (15-37) Alanine Aminotransferase (ALT/SGPT) 41U/L (14-59) Alkaline Phosphatase 63U/L (46-116) Total Protein 7.5g/dL (6.4-8.2) Albumin 3.8g/dL (3.4-5.0) Albumin/Globulin Ratio 1.0 (1.0-1.7) Triglycerides Level 139mg/dL (0-150) Cholesterol Level 209mg/dL (0-200) LDL Cholesterol, Calculated 109mg/dL (0-100) VLDL Cholesterol, Calculated 28mg/dL (0-40) HDL Cholesterol 72mg/dL (40-60) Cholesterol/HDL Ratio 2.9 Thyroid Stimulating Hormone (TSH) 6.833uIU/mL (0.358-3.74) Laboratory Tests Test 07/12/16 00:30 07/12/16 07:40 07/12/16 13:45 White Blood Count 3.7x10^3/uL (4.0-11.0) Red Blood Count 4.72x10^6/uL (3.50-5.40) Hemoglobin 13.6g/dL (12.0-15.5) Hematocrit 41.5% (36.0-47.0) Mean Corpuscular Volume 88fL (79-100) Mean Corpuscular Hemoglobin 29pg (25-35) Mean Corpuscular Hemoglobin Concent 33g/dL (31-37) Red Cell Distribution Width 13.3% (11.5-14.5) Platelet Count 153x10^3/uL (140-400) Neutrophils (%) (Auto) 33% (31-73) Lymphocytes (%) (Auto) 58% (24-48) Monocytes (%) (Auto) 7% (0-9) Eosinophils (%) (Auto) 2% (0-3) Basophils (%) (Auto) 1% (0-3) Neutrophils # (Auto) 1.2x10^3uL (1.8-7.7) Lymphocytes # (Auto) 2.1x10^3/uL (1.0-4.8) Monocytes # (Auto) 0.3x10^3/uL (0.0-1.1) Eosinophils # (Auto) 0.1x10^3/uL (0.0-0.7) Basophils # (Auto) 0.0x10^3/uL (0.0-0.2) Sodium Level 144mmol/L (136-145) 146mmol/L (136-145) Potassium Level 3.4mmol/L (3.5-5.1) 3.8mmol/L (3.5-5.1) Chloride Level 106mmol/L (98-107) 109mmol/L (98-107) Carbon Dioxide Level 26mmol/L (21-32) 25mmol/L (21-32) Anion Gap 12 (6-14) 12 (6-14) Blood Urea Nitrogen 15mg/dL (7-20) 15mg/dL (7-20) Creatinine 0.7mg/dL (0.6-1.0) 0.7mg/dL (0.6-1.0) Estimated GFR (Cockcroft-Gault) 85.1 85.1 Glucose Level 102mg/dL (70-99) 96mg/dL (70-99) Calcium Level 9.2mg/dL (8.5-10.1) 9.0mg/dL (8.5-10.1) Troponin I Quantitative < 0.017ng/mL (0.000-0.055) < 0.017ng/mL (0.000-0.055) < 0.017ng/mL (0.000-0.055) BUN/Creatinine Ratio 21 (6-20) Magnesium Level 2.4mg/dL (1.8-2.4) Total Bilirubin 0.5mg/dL (0.2-1.0) Aspartate Amino Transf (AST/SGOT) 36U/L (15-37) Alanine Aminotransferase (ALT/SGPT) 41U/L (14-59) Alkaline Phosphatase 63U/L (46-116) Total Protein 7.5g/dL (6.4-8.2) Albumin 3.8g/dL (3.4-5.0) Albumin/Globulin Ratio 1.0 (1.0-1.7) Triglycerides Level 139mg/dL (0-150) Cholesterol Level 209mg/dL (0-200) LDL Cholesterol, Calculated 109mg/dL (0-100) VLDL Cholesterol, Calculated 28mg/dL (0-40) HDL Cholesterol 72mg/dL (40-60) Cholesterol/HDL Ratio 2.9 Thyroid Stimulating Hormone (TSH) 6.833uIU/mL (0.358-3.74) Brief Hospital Course Ms. Arnold is a 60 old [sex] who presented with [ ] 60 y./o [place]isian speaking lady, 10 y.o grand son acts as meeting specialist, Pt only takes loratidine and Probiotic as home med, Came in last night bec of CP at home at rest associated with nausea, no other sxs relayed to me, Lasted 2 hrs, currently CP free. Trops x 2 neg, EKG I have personally reviewed, no concerning findings Pt already ate breakfast NOn smoker, non drinker NO relevant past surgical hx ROS: all 14 pt reviewed, neg Fam Hx; HTN and Dm in family PAst medical: allergies MPi neg, Globus sensation on hx, recommend outpt GI \and PPI OTC and ASA 81 Discharge Information Condition at Discharge: Improved, Stable Disposition/Orders: D/C to Home Scheduled Loratadine (Loratadine) 10 MG PO DAILY (Reported) Miscellaneous Medications L.acidoph & Paracasei,B.lactis (Probiotic) 1 EACH PO (Reported) MORGAN JAIN MD Jul 12, 2016 16:07
[2016-07-12] MEDS ORDERED: PANTOPRAZOLE 40 MG TABLET. PO SCH (16:30)
[2016-07-12 19:11] VITALS: BP 127/70
[2016-07-12 22:57] VITALS: BP 110/56
--- NOTE | 2016-07-13 00:31 | ACF ---
Admission Forms Criteria CARDIOLOGY [facility] Clinical Indications for Admission to Inpatient Care ( Place 'X' for any and all applicable criteria): Hospital admission is needed for appropriate care of the patient because of ANY ONE of the following (1): [ ] I. Hemodynamic instability as indicated by ALL of the following (1)(2)(3) (4)(5) [ ]a) Vital signs or other findings not as expected for chronic patient condition or baseline [ ]b) Instability indicated by ANY ONE of the following: [ ]i) Hypotension [ ]ii) Symptomatic Tachycardia unresponsive to treatment ( e.g., analgesia, fluids, sedation as indicated) [ ]iii) Inadequate perfusion indicated by ANY ONE of the following: [ ] 1) Lactic acidosis (> 2 mmol/L) [ ] 2) New abnormal capillary refill (> 3 seconds) [ ] 3) Reduced urine output [ ] 4) New altered mental status [ ]iv) Orthostatic vital sign changes unresponsive to treatment (e.g., fluids) [ ]v) IV inotropic or vasopressor medication required to maintain adequate blood pressure or perfusion [ ] II. Severe heart failure as indicated by ANY ONE of the following(17)(18) [ ]a) Respiratory distress [ ]b) Hypotension [ ]c) Anasarca (refractory to outpatient therapy) [ ]d) Cardiac arrhythmias of immediate concern [ ]e) Myocardial ischemia [ ] III. Cardiac arrhythmias or findings of immediate concern indicated by ANY ONE of the following (19)(20): [ ] a) Heart rhythms that are inherently dangerous or unstable indicated by ANY ONE of the following (21)(22)(23): [ ] i) Resuscitated ventricular fibrillation or cardiac arrest [ ] ii) Ventricular escape rhythm [ ] iii) Sustained ventricular tachycardia (30 seconds or more of ventricular rhythm at greater than 100 beats per minute) [ ] iv) Nonsustained ventricular tachycardia and ANY ONE of the following: [ ] 1) Suspected cardiac ischemia as cause or consequence of ventricular tachycardia [ ] 2) In setting of acute myocarditis [ ] b) Unstable cardiac conduction defects indicated by ANY ONE of the following(23)(24)(25) [ ] i) Type II second-degree atrioventricular block [ ]ii) Third-degree atrioventricular block [ ]iii) New-onset left bundle branch block with suspected myocardial ischemia [ ]c) Any heart rhythm and ANY ONE of the following (21)(22)(26)(27) (28) [ ] i) Continuous long-term ECG monitoring needed (e.g., initiation of drug requiring monitoring for more than 24 hours) [ ] ii) Patient has automatic implanted cardioverter defibrillator that is repeatedly firing, malfunctioning, or in need of immediate adjustment of settings beyond the scope of ambulatory or observation care [ ]d) Heart rhythms of concern due to ANY ONE of the following: [ ] i) Hypotension [ ] ii) Respiratory distress [ ] iii) Association with other significant symptoms (e.g., bradycardia with syncope or ongoing dizziness, supraventricular tachycardia with chest pain (14)(15)(17) [ ] IV. Monitoring for cardiac contusion beyond the scope of observation care needed [A](30)(31)(32) [ ] V. Surgical or device complication (e.g., valve replacement complication , pacemaker dysfunction) (35)(41)(44)(45)(46) [ ] . Inpatient palliative care needed. [B](49) Also use Inpatient Palliative Care Criteria [ ] VII. Nonbacterial thrombotic (marantic) endocarditis (36)(43)(47)(48) [X] VIII. Cardiology condition, symptom, or finding for which emergency and observation care has failed or are not considered appropriate. [ ] IX. Acute valvular disease requiring inpatient as indicated by ANY ONE of the following (41) [ ]a) Acute valvular regurgitation (42) [ ]b) Noninfectious valvulitis (43) [ ]c) Obstructive valve thrombosis [ ]d) Paravalvular leak [ ]e) Other significant valvular disorder remaining after emergency or observation level of care (as appropriate) [ ]X. Pericardial disease requiring inpatient treatment as indicated by ANY ONE of the following (33)(34)(35)(36)(37) [ ]a) Suspected tamponade (38)(39)(40) [ ]b) Hemopericardium [ ]c) Other significant pericardial disorder remaining after emergency or observation level of care (as appropriate) [ ] XI. Cardiac ischemia beyond scope of emergency and observation care. [ ] XII. Hypertension requiring inpatient treatment as indicated by ANY ONE of the following (6)(7)(8) [ ]a) SBP greater than 220 mm Hg or DBP greater than 120 mmHg despite treatment [ ]b) SBP greater than 140 mm Hg or DBP greater than 100 mm Hg with evidence of acute end organ damage as indicated by ANY ONE of the following [ ] i) Encephalopathy [ ] ii) Acute renal failure as indicated by new onset of ANY ONE of the following (9)(10)(11)(12)(13) [ ]1) 3-fold rise in serum creatinine from baseline [ ]2) Serum creatinine greater than 4 mg/dL ( 354 micromoles/L) with acute rise greater than 0.5 mg/dL (44.2 micromoles/L) [ ]3) Reduction of more than 75% in estimated glomerular filtration rate from baseline [ ]4) Estimated glomerular filtration rate less than 35 mL/min/1.73m2 (0.59 mL/sec/1.73m2) in child up to 18 years of age [ ]5) Cessation of urine output indicated by ALL of the following [ ]A. Adequate volume status [ ]B. Inadequate urine output as indicated by ANY ONE of the following [ ]a. Urine output less than 0.3 mL/kg/hr for 24 hours [ ]b. Anuria (urine output less than 0.1 mL/kg/hr) for 12 hours [ ] iii) Aortic dissection [ ] iv) Myocardial Ischemia [ ] v) Left ventricular heart failure [ ]vi) Retinal Hemorrhage [ ]vii) Other significant finding [ ]c) Hypertension in child requiring inpatient treatment as indicated by ALL of the following(14)(15)(16) [ ] i) Outpatient treatment not effective, not available, or not appropriate [ ]ii) SBP or DBP greater than 95th percentile for age [ ]iii) Evidence of acute end organ damage as indicated by ANY ONE of the following [ ]1) Altered mental status [ ]2) Acute renal failure as indicated by new onset of ANY ONE of the following(9)(10)(11)(12)(13) [ ]A. 3-fold rise in serum creatinine from baseline [ ]B. Serum creatinine greater than 4 mg/dL (354 micromoles/L) with acute rise greater than 0.5 mg/dL (44.2 micromoles/L) [ ]C. Reduction of more than 75% in estimated glomerular filtration rate from baseline [ ]D. Estimated glomerular filtration rate less than 35 mL/min/1.73m2 (0.59 mL/sec/1.73m2) in child up to 18 years of age [ ]E. Cessation of urine output indicated by ALL of the following [ ]a. Adequate volume status [ ]b. Inadequate urine output as indicated by ANY ONE of the following [ ]i) Urine output less than 0.3 mL/kg/hr for 24 hours [ ]ii) Anuria ( urine output less than 0.1 mL/kg/hr) for 12 hours [ ]3) Severe headache [ ]4) Visual disturbance [ ]5) Retinal hemorrhage [ ]6) Other significant finding [ ]XIII. Complications of transplanted heart indicated by ANY ONE of the following(61): [ ]a) Acute graft rejection requiring inpatient management (eg, intravenous immunosuppression)(62)(63) [ ]b) Acute graft heart failure indicated by ANY ONE of the following(64): [ ]i) Hemodynamic instability [ ]ii) Cardiac arrhythmias of immediate concern [ ]iii) Pulmonary edema that is very severe (eg, mechanical ventilation needed, imminent or likely, need for 100% oxygen to keep oxygen saturation above 90%) [ ]iv) Pulmonary edema that is persistent as indicated by ALL of the following: [ ]1) New need for oxygen therapy to keep oxygen saturation above 90% (or increased FiO2 need from baseline) [ ]2) Has not improved sufficiently with emergency department or observation care IV diuretics or other heart failure treatments[E] [ ]v) Altered mental status that is severe or persistent [ ]vi) Increased creatinine (new on laboratory test) with reduction of more than 50% in estimated glomerular filtration rate from baseline [ ]vii) Progressively (ongoing) rising creatinine (known from past laboratory test) with reduction of more than 25% in estimated glomerular filtration rate from baseline [ ]viii) Acute renal failure [ ]ix) Acute peripheral ischemia (eg, examination shows pulseless, cool, mottled, or cyanotic extremity) [ ]x) Pulmonary artery catheter monitoring needed [ ]xi) Other sign or symptom of heart failure requiring inpatient treatment (ie, too severe or not responsive to outpatient and observation care treatment) [ ]c) Infection requiring inpatient management (eg, Hemodynamic instability, need for intravenous antimicrobial treatment)(66)(67)(68)(69)(70) [ ]d) Cardiac allograft vasculopathy requiring inpatient management ( eg evidence of cardiac ischemia)(71) [ ]e) Other complication of transplanted heart (eg, stroke, severe pulmonary hypertension, severe valvular dysfunction) requiring inpatient management(72) The original [facility] content created by [facility] has been revised. The portions of the content which have been revised are identified through the use of italic text or in bold, and [facility] has neither reviewed nor approved the modified material. All other unmodified content is copyright [facility]. Please see references footnoted in the original [facility] edition 2016 Admission Criteria Met?: Yes UMANG LALA Jul 13, 2016 00:31
[2016-07-13 03:00] VITALS: BP 103/45
[2016-07-13 07:27] VITALS: BP 106/51
[2016-07-13] MEDS ORDERED: ASPIRIN ENTERIC COATED 81 MG TABLET.DR. PO SCH (08:00)
[2016-07-13] MEDS: PANTOPRAZOLE 40 MG TABLET. PO SCH (08:25)
--- NOTE | 2016-07-13 09:14 | PDOC2 ---
GI CONSULT Reason For Consult: Atypical chest pain HPI: HPI: 60 y/o Upper Sorbian-speaking female admitted w/ chest pressure, cardiac etiology ruled out, started on PPI here. Was supposed to DC yesterday w/ suggested outpt GI eval but requested to remain inpt for this. Emissions Technician phone utilized for interview. Describes 1 year of upper GI symptoms, feeling like she "can't burp" after eating. DENIES dysphagia, odynophagia. Was given pill for heartburn which helped at first but then made her "feel bad." Also denies heartburn and reflux, n/v, abd pain, constipation, hematochezia, melena, change in appetite, and weight loss. Has noted some looser stools lately. Asymptomatic this morning. No previous EGD or colonoscopy. No NSAID use. Family in room w/ [employer] breakfast and coffee for her. PMH: PMH: HLD, OA, allergic rhinitis, (X2) FH: Family History: No pertinent hx (denies GI cancers), DM Social History: Smoke: Quit (quit 1 yr ago 10 ciggs 40 yrs) ALCOHOL: none Drugs: None ROS: GEN: Denies fevers, chills, sweats HEENT: Denies blurred vision, sore throat CV: +chest pain RESP: Denies shortness of air, cough GI: Per HPI : Denies hematuria, dysuria ENDO: Denies weight changes NEURO: Denies confusion, dizziness MSK: Denies weakness, joint pain/swelling SKIN: Denies jaundice, pruritus VItals: Vitals: Vital Signs Date Time Temp Pulse Resp B/P Pulse Ox O2 Delivery O2 Flow Rate FiO2 07/13/16 08:00 Room Air 07/13/16 07:27 98.1 70 18 106/51 97 98.1 Labs: Labs: Laboratory Tests Test 07/12/16 13:45 Troponin I Quantitative < 0.017ng/mL (0.000-0.055) Allergies: Coded Allergies: No Known Drug Allergies (Unverified , 07/11/16) Medications: Current Medications Medications (Trade) Dose Ordered Sig/Tim Route PRN Reason Start Time Stop Time Status Last Admin Dose Admin Pantoprazole Sodium (Protonix) 40 mg DAILYAC PO 07/12/16 12:00 07/13/16 08:25 Aspirin (Ecotrin) 81 mg DAILYWBKFT PO 07/13/16 08:00 07/13/16 08:25 Regadenoson (Lexiscan) 0.4 mg 1X ONCE IV 07/12/16 12:15 07/12/16 12:16 DC 07/12/16 13:21 Potassium Chloride (Klor-Con) 20 meq 1X ONCE PO 07/12/16 15:30 07/12/16 15:31 DC 07/12/16 15:52 Imaging: Imaging: CXR 07/12/16 IMPRESSION: No acute or significant finding apparent in the chest MPI 07/12/16 Conclusion 1. Regadenoson cardioisotope stress test did not show any evidence of ischemia or infarct. 2. Normal left ventricular systolic function with ejection fraction calculated at 89%. 3. Low risk for cardiac events. PE: GEN: NAD, sitting on edge of bed HEENT: Atraumatic, PERRL LUNGS: CTAB HEART: RRR ABD: NABS, S/ND/NT EXTREMITY: No edema SKIN: No rashes, no jaundice NEURO/PSYCH: A & O 3 A/P: A/P: Atypical chest pain/pressure -ongoing x 1 year, feels like she can't burp after eating -"heartburn pill" helped CRC screen -no previous colonoscopy Elevated TSH -per primary -- Recommend continuing PPI Q a.m. 30-45 min before breakfast, antacids PRN, and outpatient EGD and screening colonoscopy. SAADIA MONTIEL Jul 13, 2016 09:14
[2016-07-13] MEDS ORDERED: ASPI-482 PO (09:33)
[2016-07-13] MEDS ORDERED: LANS30CA17 PO (09:33)
--- NOTE | 2016-07-13 09:34 | PDOC ---
Provider Note Provider Note Pt did not go home yesterday as She wanted in pt GI consult Seen by GI, no new recs, can ff upa s OP OTC prevacid and PTC ASA 81 Dw pt, family and RN Pt seen and examined dc summ done yesterday- addendum done MORGAN JAIN MD Jul 13, 2016 09:34
== END 2016-07-13 10:30 | disposition home or self-care (01) | DRG 392 ==
LOC: ER 23:51 → 2 SOUTH 07-12 01:36
PROVIDERS: ADMIT Internal Medicine; ATTEND Internal Medicine
DX: K21.9 Gastro-esophageal reflux disease without esophagitis (principal); E87.6 Hypokalemia; E78.00 Pure hypercholesterolemia, unspecified; E03.9 Hypothyroidism, unspecified; J30.2 Other seasonal allergic rhinitis; E78.5 Hyperlipidemia, unspecified; I10 Essential (primary) hypertension; M19.90 Unspecified osteoarthritis, unspecified site; Z83.3 Family history of diabetes mellitus; Z82.49 Family history of ischemic heart disease and other diseases of the circulatory system; Z87.891 Personal history of nicotine dependence
CPT/HCPCS: 36415; 71020; 78452; 80048; 80053; 80061; 83735; 84443; 84484; 85027; 93005; 93017; 93306; 96374; 96375; 96376; A9500; J2785; 99285-25